=== PATIENT | female | born 1995 | race Caucasian/White ===

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

== ENCOUNTER 2018-08-20 14:31 | Inpatient (IN) | payer OTHER ==
[~2018-08-20] VITALS: Ht 188 cm; Wt 66.7 kg
[2018-08-20 15:10] VITALS: BP 139/87
[2018-08-20] MEDS ORDERED: 0.9 % SODIUM CHLORIDE 10 ML DISP.SYRIN. IV PRN (15:15)
[2018-08-20 15:48] LABS: BILIRUBIN,URINE NEGATIVE (NEG); CLARITY,URINE CLEAR; COLOR,URINE YELLOW; NITRITE,URINE NEGATIVE (NEG); PROTEIN,URINE NEGATIVE (NEG-TRACE); UROBILINOGEN,URINE 0.2 mg/dL (0.2 mg/dL)
[2018-08-20] MEDS: IV RINGERS,LACTATED 1000ML 1,000 ML IV SCH ×2 (16:03→21:20)
[2018-08-20] MEDS: KETOROLAC 15 MG/ML VIAL. IV PRN (16:03)
[2018-08-20 16:04] LABS: BACTERIA,URINE FEW /HPF (0-FEW); RBC,URINE 0 /HPF (0-2); SQUAMOUS EPITHELIAL CELL,UR MANY /LPF; WBC,URINE OCC /HPF (0-4)
[2018-08-20 16:04] LABS: BASO # 0.1 x10^3/uL (0.0-0.2); BASO % 1 % (0-3); EOS % 0 % (0-3); HEMATOCRIT 47.3 % (36.0-47.0); HEMOGLOBIN 16.1 g/dL (12.0-15.5); LYMPH # 1.2 x10^3/uL (1.0-4.8); LYMPH % 17 % (24-48); MEAN CORPUSCULAR HEMOGLOBIN 30 pg (25-35); MEAN CORPUSCULAR HGB CONC 34 g/dL (31-37); MEAN CORPUSCULAR VOLUME 90 fL (79-100); MONO # 0.4 x10^3/uL (0.0-1.1); MONO % 5 % (0-9); NEUT # 5.3 x10^3uL (1.8-7.7); NEUT % 76 % (31-73); PLATELET COUNT 185 x10^3/uL (140-400); RED BLOOD COUNT 5.28 x10^6/uL (3.50-5.40); RED CELL DISTRIBUTION WIDTH 14.1 % (11.5-14.5); WHITE BLOOD COUNT 6.9 x10^3/uL (4.0-11.0)
[2018-08-20] MEDS: ONDANSETRON PF 4 MG/2 ML VIAL. IV PRN (16:04)
[2018-08-20] MEDS ORDERED: NORE-83 PO (16:24)
[2018-08-20 16:25] LABS: ALBUMIN 4.4 g/dL (3.4-5.0); ALBUMIN/GLOBULIN RATIO 1.2 (1.0-1.7); CALCIUM 9.6 mg/dL (8.5-10.1); CREATININE 0.8 mg/dL (0.6-1.0); GFR 90.5; POTASSIUM 4.1 mmol/L (3.5-5.1); TOTAL BILIRUBIN 0.5 mg/dL (0.2-1.0); TOTAL PROTEIN 8.1 g/dL (6.4-8.2)
--- NOTE | 2018-08-20 16:58 | NUR ---
Pt arrived to unit by w/c, accompanied by grandmother, JeffreyA from Dr Roland's office. Admission Dx Abdominal Pain. Dr Roland sent written orders with Pt, this nurse called back to verify Rocephin since Pt has PCN allergies, okay to administer per orders. IVFs initiated, blood drawn by lab, UA collected. Admission assessment in progress. Pt has a history of self-mutilation and suicide attempts but denies wish to harm herself. Lethality assessment completed by EKATERINA Hebert, Nurse [employer] Printer Operator to sign.
[2018-08-20] MEDS ORDERED: cefTRIAXone IV Push 1 GM VIAL. IVP SCH (17:00)
[2018-08-20] MEDS: fentaNYL PF VIAL 100 MCG/2 ML VIAL IV PRN ×2 (18:13→21:31)
[2018-08-20 18:32] LABS: BARBITURATES NEG (NEG); BENZODIAZEPINES NEG (NEG); CANNABINOIDS POS (NEG); COCAINE NEG (NEG); METHADONE NEG (NEG); OPIATES NEG (NEG); PHENCYCLIDINE NEG (NEG)
[2018-08-20 18:33] LABS: AMPHETAMINE/METHAMPHETAMINE NEG (NEG)
[2018-08-20 19:00] VITALS: BP 130/75
[2018-08-20] MEDS: PROCHLORPERAZINE 10 MG/2 ML VIAL. IV PRN (21:16)
[2018-08-20 23:00] VITALS: BP 123/71
[2018-08-21] MEDS: IV RINGERS,LACTATED 1000ML 1,000 ML IV SCH ×4 (02:25→23:14)
[2018-08-21 03:00] VITALS: BP 120/69
[2018-08-21] MEDS: KETOROLAC 15 MG/ML VIAL. IV PRN (04:09)
[2018-08-21] MEDS: ONDANSETRON PF 4 MG/2 ML VIAL. IV PRN (04:10)
[2018-08-21] MEDS: fentaNYL PF VIAL 100 MCG/2 ML VIAL IV PRN ×4 (05:36→23:09)
[2018-08-21] MEDS: PROCHLORPERAZINE 10 MG/2 ML VIAL. IV PRN ×4 (05:37→23:09)
[2018-08-21 07:00] VITALS: BP 134/85
--- NOTE | 2018-08-21 08:59 | PDOC ---
Provider Note Provider Note vss, no temp- labs all ok- tender R cva persists, also RUQ- ua clear so dc rocephin- ct uro re ? stone, add protonix re ? atypical ulcer- states her thc intake is low, so not likely cannabis syndrome RANJAN HERRERA MD Aug 21, 2018 08:59
[2018-08-21 10:28] LABS: U PREG PATIENT NEGATIVE (NEG)
[2018-08-21 10:30] VITALS: BP 128/81
--- NOTE | 2018-08-21 11:04 | HP ---
ADMIT DATE: 08/20/2018 CHIEF COMPLAINT: Flank pain. HISTORY OF PRESENT ILLNESS: A 23-year-old white female seen in the office on the day of admission for 3 days of upper abdominal pain, right flank pain and pain to the right side. She has had nausea and vomiting and decreased urine output as well. She was seen at [facility] and apparently a pelvic ultrasound and CT scan of the abdomen and pelvis were both normal. and she was told it was "irritable bowel syndrome." She was given antispasmodics, but her pain continued and vomiting persisted. She is admitted for further evaluation. PAST MEDICAL HISTORY: Surgically knee surgeries x 2, cholecystectomy. MEDICATIONS: Include control pills only. ALLERGIES: PENICILLIN. SOCIAL HISTORY: She is a nonsmoker. She is not currently sexually active. Last intercourse 6 months ago. She is on control pills. test recently was negative. She is single. FAMILY HISTORY: Unremarkable. REVIEW OF SYSTEMS: No other problems. OBJECTIVE: ENT: All within normal limits except dry mucosa. No jaundice is seen. NECK: No masses, nodes or bruits. LUNGS: Clear. CARDIOVASCULAR: Regular rate, mild tachycardia. No murmur. ABDOMEN: Tender in right upper quadrant and right lower quadrant. Mild guarding. No masses, rebound or skin rash. BACK: She is tender to right flank percussion. Left side is benign. EXTREMITIES: Unremarkable. GENITOURINARY AND RECTAL: Deferred. ASSESSMENT: Right flank and abdominal pain, nausea and vomiting, suspect pyelonephritis, less likely renal stone, which she has apparently had before. PLAN: As ordered. RANJAN HERRERA MD DR: CEE/anthony JOB#: [id number] / [id number]
--- NOTE | 2018-08-21 11:42 | RAD ---
CT Abdomen and Pelvis without contrast History: Right flank pain Technique: Noncontrast CT imaging was performed of the abdomen and pelvis. Multiplanar images are reviewed. Exposure: One or more of the following individualized dose reduction techniques were utilized for this examination: 1. Automated exposure control 2. Adjustment of the mA and/or kV according to patient size 3. Use of iterative reconstruction technique. Comparison: None Findings: There is no abnormality of the limited visualized lung bases. Accurate evaluation of abdominal visceral organs is limited without intravenous contrast. There is no obvious abnormality of the spleen, liver, or pancreas. There is no adrenal nodularity. There has been cholecystectomy. There is mild right caliectasis. Right ureter is not significantly dilated. Tiny 1-2 mm calculus in the right pelvis is believed to be outside of the ureter although difficult to visualize the distal right ureter on this exam. Accurate evaluation of bowel is limited without oral contrast. There is mild scattered colonic diverticulosis. There is no significant free air, free fluid, bowel dilatation. Normal caliber appendix is visualized. Impression: 1. There is a tiny 1 to 2 mm calculus in the right pelvis, believed to be outside the ureter although distal right ureter difficult to visualize in its entirety. There is mild right caliectasis, no renal calculus. There is no ureteral dilatation. 2. There is no CT evidence of acute appendicitis. 3. There is mild scattered colonic diverticulosis. Electronically signed by: Jaspreet Dunn MD (08/21/2018 11:38 AM) [id number]
[2018-08-21 14:34] VITALS: BP 132/83
--- NOTE | 2018-08-21 15:19 | NUR ---
SW following. Discussed with RN, RN denied and SW needs at this time. Pt listed as self pay but reported to [facility], Cheri that she has insurance. SW will continue to follow.
[2018-08-21 18:58] LABS: FECAL OB PT NEGATIVE (NEG)
[2018-08-21 19:00] VITALS: BP 131/79
[2018-08-21 23:00] VITALS: BP 130/87
[2018-08-22 03:00] VITALS: BP 136/84
[2018-08-22] MEDS: ONDANSETRON PF 4 MG/2 ML VIAL. IV PRN ×2 (04:47→12:13)
[2018-08-22 05:14] LABS: ALBUMIN 3.9 g/dL (3.4-5.0); DIRECT BILIRUBIN 0.2 mg/dL (0.0-0.2); TOTAL BILIRUBIN 0.9 mg/dL (0.2-1.0); TOTAL PROTEIN 7.1 g/dL (6.4-8.2)
[2018-08-22] MEDS: PROCHLORPERAZINE 10 MG/2 ML VIAL. IV PRN (06:48)
[2018-08-22] MEDS: fentaNYL PF VIAL 100 MCG/2 ML VIAL IV PRN ×4 (06:48→18:36)
[2018-08-22 07:00] VITALS: BP 125/77
[2018-08-22] MEDS: IV RINGERS,LACTATED 1000ML 1,000 ML IV SCH (07:53)
--- NOTE | 2018-08-22 08:16 | PDOC ---
Provider Note Provider Note pain R cva down from 9 to 5 but still hurts, still quite nauseous-, no melena, emesis, new sxs- labs ,vss ok- ct shows scant R calyectasis, no hydroureter- ? passed R stone- will sono, cont same for now, re slow progress- stool neg for blood RANJAN HERRERA MD Aug 22, 2018 08:16
[2018-08-22] MEDS ORDERED: PANTOPRAZOLE IV PUSH 40 MG VIAL. IVP SCH (08:30)
[2018-08-22] MEDS: TAMSULOSIN 0.4 MG CAP.ER.24H. PO SCH (08:30)
[2018-08-22] MEDS: POTASSIUM CL 20MEQ D5-0.45NACL 1,000 ML IV SCH ×2 (08:31→19:39)
--- NOTE | 2018-08-22 09:23 | RAD ---
Renal sonography Clinical indications: Flank pain. History kidney stones. FINDINGS: The longitudinal AP and transverse dimensions of the right kidney are 11.0 cm and 3.7 cm and 4.0 cm respectively. The longitudinal AP and transverse dimensions of the left kidney are 11.1 cm and 3.5 cm and 5.4 cm respectively. No hydronephrosis or renal mass or perinephric fluid collection is evident on either side. The urinary bladder is mildly distended. No intraluminal echodensities or masses are seen. IMPRESSION: Unremarkable study. Electronically signed by: Clyde Nick MD (08/22/2018 9:20 AM) [facility]
--- NOTE | 2018-08-22 09:32 | PDOC2 ---
GI CONSULT Reason For Consult: right upper abd pain HPI: HPI: 23 y/o female who has been ill since last . Stabbing right-sided pain began while driving to work that day. Constant, felt in flank and RUQ w/ some in epigastrium, worse w/ walking. Leigh Ann felt like gallbladder pain. Associated w/ fever (100 at home, afebrile here), n/v (began on Saturday - bilious , maybe a streak of red blood once, occurs 30 min after eating/drinking), and diarrhea (began on , better now). Occasional heartburn if eats marinara sauce late at night, takes Tums sometimes. No dysphagia. No chronic n/v or pain. Typically no diarrhea or constipation. Denies hematochezia and melena. Maybe weight loss over the past few days since not eating. Denies sick contacts or ingestion of questionable food. Took atbx for pneumonia late last year. No previous EGD or colonoscopy. S/p cholecystectomy. No PUD, liver, or pancreas history. No regular NSAIDs. PMH: PMH: pneumonia, depression, heartburn, diverticulosis bilateral knee arthroscopies, cholecystectomy (biliary dyskinesia), corrective eye surgery FH: Family History: No pertinent hx (deneis GI cancers, PUD, IBD) Social History: Smoke: No ALCOHOL: rare Drugs: Marijuana (twice weekly) ROS: GEN: +fever HEENT: Denies blurred vision, sore throat CV: Denies chest pain RESP: Denies shortness of air, cough GI: Per HPI : Denies hematuria, dysuria ENDO: ?weight loss NEURO: Denies confusion, dizziness MSK: Denies weakness, joint pain/swelling SKIN: Denies jaundice, pruritus Vitals: Vitals: Vital Signs Date Time Temp Pulse Resp B/P (MAP) Pulse Ox O2 Delivery O2 Flow Rate FiO2 08/22/18 07:35 Room Air 08/22/18 07:00 98.0 103 16 125/77 (93) 98 98.0 Labs: Labs: Laboratory Tests Test 08/21/18 18:42 08/22/18 04:15 Stool Occult Blood Negative (NEG) Total Bilirubin 0.9 mg/dL (0.2-1.0) Direct Bilirubin 0.2 mg/dL (0.0-0.2) Aspartate Amino Transf (AST/SGOT) 18 U/L (15-37) Alanine Aminotransferase (ALT/SGPT) 58 U/L (14-59) Alkaline Phosphatase 70 U/L (46-116) Total Protein 7.1 g/dL (6.4-8.2) Albumin 3.9 g/dL (3.4-5.0) BLOOD CULTURE Preliminary NO GROWTH AFTER 1 DAY Allergies: Coded Allergies: Latex, Natural Rubber (Verified Allergy, Severe, 08/20/18) Penicillins (Verified Allergy, Severe, 08/20/18) morphine (Verified Allergy, Intermediate, 08/20/18) Medications: Current Medications Medications (Trade) Dose Ordered Sig/Shashank Route PRN Reason Start Time Stop Time Status Last Admin Dose Admin Pantoprazole Sodium (PROTONIX VIAL for IV PUSH) 40 mg DAILYAC IVP 08/22/18 08:30 08/22/18 08:30 Potassium Chloride/Dextrose/ Sod Cl 1,000 ml @ 75 mls/hr [id number] IV 08/22/18 08:30 08/22/18 08:31 Tamsulosin HCl (Flomax) 0.4 mg DAILY PO 08/22/18 09:00 08/22/18 08:30 Imaging: Imaging: CT A/P 08/21 Impression: 1. There is a tiny 1 to 2 mm calculus in the right pelvis, believed to be outside the ureter although distal right ureter difficult to visualize in its entirety. There is mild right caliectasis, no renal calculus. There is no ureteral dilatation. 2. There is no CT evidence of acute appendicitis. 3. There is mild scattered colonic diverticulosis. Right renal US 08/22 IMPRESSION: Unremarkable study. PE: GEN: uncomfortable - having ultrasound HEENT: Atraumatic, PERRL LUNGS: CTAB HEART: RRR ABD: NABS, S/ND, mid right abd discomfort at level of umbilicus, some discomfort in epigastrium, worse around to right flank EXTREMITY: No edema SKIN: No rashes, no jaundice NEURO/PSYCH: A & O 3 A/P: A/P: Right flank/abd pain ?fever, n/v, diarrhea (better) Abnormal CT - tiny 1-2 mm calculus in right pelvis Occasional heartburn - no previous EGD, takes Tums PRN CRC screen - average risk Diverticulosis S/p cholecystectomy +marijuana -- Ongoing pain. Diarrhea improved, ?ongoing n/v - has been NPO Agree w/ PPI - will make BID and can change to PO when tolerating diet. Cortisol pending. DAVIS GODFREY Aug 22, 2018 09:32
[2018-08-22 11:00] VITALS: BP 132/86
--- NOTE | 2018-08-22 13:24 | PDOC2 ---
TAISHA TATE [employer]GER [employer] 08/22/18 1324: CONSULT Date of Consult Date of Consult DATE: 08/22/18 TIME: 13:17 Reason for Consult Reason for Consult: rlq pain Referring Physician Referring Physician: Dr Jacobo Identification/Chief Complaint Chief Complaint abdominal pain Source Source: Chart review, Patient History of Present Illness Reason for Visit: RLQ pain that started last (8 days ago). She did have some diarrhea, however that has now improved and stools are becoming more solid. She was seen at [facility] on Saturday, CT without appendicitis per pt and PCP note. Treated for IBS. Continues to have RLQ pain with radiation to her back. Pain is worse with movement. She does have associated nausea and emesis. Past Medical History GI: Diverticulosis, GERD Past Surgical History Past Surgical History: Cholecystectomy Family History Family History: Other (noncontributory to current illness ) Social History No ALCOHOL: rare Drugs: Marijuana (twice weekly) Current Medications Current Medications Current Medications Sodium Chloride (Normal Saline Flush) 3 ml PRN DAILY PRN IV AFTER MEDS AND BLOOD DRAWS; Start 08/20/18 at 15:15 Ringer's Solution 1,000 ml @ 75 mls/hr [id number] IV Last administered on at 23:14; Start 08/20/18 at 15:06; Stop 08/22/18 at 08:14; Status DC Ondansetron HCl (Zofran) 4 mg PRN Q6HRS PRN IV NAUSEA/VOMITING Last administered on 08/22/18at 12:13; Start 08/20/18 at 15:15 Ketorolac Tromethamine (Toradol 15mg Vial) 15 mg PRN Q6HRS PRN IV PAIN Last administered on 08/21/18at 04:09; Start 08/20/18 at 15:15; Stop 08/25/18 at 15:14 Ceftriaxone Sodium (Rocephin) 1 gm Q24H IVP Last administered on 08/20/18at 17: 09; Start 08/20/18 at 17:00; Stop 08/21/18 at 08:41; Status DC Fentanyl Citrate (Fentanyl 2ml Vial) 75 mcg PRN Q3HRS PRN IV PAIN Last administered on 08/22/18at 06:48; Start 08/20/18 at 18:00; Stop 08/22/18 at 08:14; Status DC Prochlorperazine Edisylate (Compazine) 5 mg PRN Q6HRS PRN IV NAUSEA/VOMITING Last administered on 08/22/18at 06:48; Start 08/20/18 at 20:45 Pantoprazole Sodium (PROTONIX VIAL for IV PUSH) 40 mg DAILYAC IVP Last administered on 08/22/18at 08:30; Start 08/22/18 at 08:30; Stop 08/22/18 at 10:10; Status DC Fentanyl Citrate (Fentanyl 2ml Vial) 50 mcg PRN Q3HRS PRN IV PAIN Last administered on 08/22/18at 12:12; Start 08/22/18 at 08:15 Potassium Chloride/Dextrose/ Sod Cl 1,000 ml @ 75 mls/hr [id number] IV Last administered on 08/22/18at 08:31; Start 08/22/18 at 08:30 Tamsulosin HCl (Flomax) 0.4 mg DAILY PO Last administered on 08/22/18at 08:30; Start 08/22/18 at 09:00 Pantoprazole Sodium (PROTONIX VIAL for IV PUSH) 40 mg BIDAC IVP ; Start 08/22/18 at 16:30 Ciprofloxacin/ Dextrose 100 ml @ 100 mls/hr Q12HR IV ; Start 08/22/18 at 13:00 Metronidazole 100 ml @ 100 mls/hr Q12HR IV ; Start 08/22/18 at 13:00 Active Scripts Active Reported Loestrin (Norethindrone A-E Estradiol) 1 Each Tablet 1 Tab PO DAILY Allergies Allergies: Coded Allergies: Latex, Natural Rubber (Verified Allergy, Severe, 08/20/18) Penicillins (Verified Allergy, Severe, 08/20/18) morphine (Verified Allergy, Intermediate, 08/20/18) ROS General: YES: Chills, Other (low grade fevers at home) PSYCHOLOGICAL ROS: No: Anxiety, Depression Eyes: No Blurry vision, No Double vision HEENT: No: Heacaches, Sore Throat Hematological and Lymphatic: No: Bleeding Problems, Blood Clots Respiratory: No: Cough, Shortness of breath Cardiovascular: No Chest Pain, No Palpitations Gastrointestinal: Yes Other (see hpi) Genitourinary: No Dysuria, No Hematuria Musculoskeletal: No Gait Disturbance, No Muscle Pain Neurological: No Confusion, No Impaired Coord/balance Skin: No Pruritus, No Rash Physical Exam General: Alert, Oriented X3, Cooperative, No acute distress HEENT: PERRLA, Mucous membr. moist/pink Lungs: Clear to auscultation, Normal air movement Heart: Regular rate, Normal S1, Normal S2, No murmurs Abdomen: Soft, Other (ND, mild TTP to RLQ, no guarding or rebound) Extremities: No clubbing, No cyanosis Skin: No rashes, No breakdown Neuro: Normal gait, Normal speech Psych/Mental Status: Mental status NL, Mood NL MUSCULOSKELETAL: No deformity, No swelling Vitals VITALS Vital Signs Date Time Temp Pulse Resp B/P (MAP) Pulse Ox O2 Delivery O2 Flow Rate FiO2 08/22/18 12:12 Room Air 08/22/18 11:00 98.5 104 18 132/86 (101) 98 98.5 Labs Labs Laboratory Tests Test 08/20/18 15:25 08/20/18 15:45 08/21/18 07:44 08/21/18 18:42 Urine Collection Type Unknown Urine Color Yellow Urine Clarity Clear Urine pH 8.0 Urine Specific [place] 1.015 Urine Protein Negative mg/dL (NEG-TRACE) Urine Glucose (UA) Negative mg/dL (NEG) Urine Ketones (Stick) 15 mg/dL (NEG) Urine Blood Negative (NEG) Urine Nitrite Negative (NEG) Urine Bilirubin Negative (NEG) Urine Urobilinogen Dipstick 0.2 mg/dL (0.2 mg/dL) Urine Leukocyte Esterase Negative (NEG) Urine RBC 0 /HPF (0-2) Urine WBC Occ /HPF (0-4) Urine Squamous Epithelial Cells Many /LPF Urine Bacteria Few /HPF (0-FEW) Urine Opiates Screen Neg (NEG) Urine Methadone Screen Neg (NEG) Urine Barbiturates Neg (NEG) Urine Phencyclidine Screen Neg (NEG) Urine Amphetamine/Methamphetamine Neg (NEG) Urine Benzodiazepines Screen Neg (NEG) Urine Cocaine Screen Neg (NEG) Urine Cannabinoids Screen Pos (NEG) Urine Ethyl Alcohol Neg (NEG) White Blood Count 6.9 x10^3/uL (4.0-11.0) Red Blood Count 5.28 x10^6/uL (3.50-5.40) Hemoglobin 16.1 g/dL (12.0-15.5) Hematocrit 47.3 % (36.0-47.0) Mean Corpuscular Volume 90 fL (79-100) Mean Corpuscular Hemoglobin 30 pg (25-35) Mean Corpuscular Hemoglobin Concent 34 g/dL (31-37) Red Cell Distribution Width 14.1 % (11.5-14.5) Platelet Count 185 x10^3/uL (140-400) Neutrophils (%) (Auto) 76 % (31-73) Lymphocytes (%) (Auto) 17 % (24-48) Monocytes (%) (Auto) 5 % (0-9) Eosinophils (%) (Auto) 0 % (0-3) Basophils (%) (Auto) 1 % (0-3) Neutrophils # (Auto) 5.3 x10^3uL (1.8-7.7) Lymphocytes # (Auto) 1.2 x10^3/uL (1.0-4.8) Monocytes # (Auto) 0.4 x10^3/uL (0.0-1.1) Eosinophils # (Auto) 0.0 x10^3/uL (0.0-0.7) Basophils # (Auto) 0.1 x10^3/uL (0.0-0.2) Sodium Level 142 mmol/L (136-145) Potassium Level 4.1 mmol/L (3.5-5.1) Chloride Level 104 mmol/L (98-107) Carbon Dioxide Level 26 mmol/L (21-32) Anion Gap 12 (6-14) Blood Urea Nitrogen 8 mg/dL (7-20) Creatinine 0.8 mg/dL (0.6-1.0) Estimated GFR (Cockcroft-Gault) 90.5 BUN/Creatinine Ratio 10 (6-20) Glucose Level 91 mg/dL (70-99) Calcium Level 9.6 mg/dL (8.5-10.1) Total Bilirubin 0.5 mg/dL (0.2-1.0) Aspartate Amino Transf (AST/SGOT) 21 U/L (15-37) Alanine Aminotransferase (ALT/SGPT) 83 U/L (14-59) Alkaline Phosphatase 82 U/L (46-116) Total Protein 8.1 g/dL (6.4-8.2) Albumin 4.4 g/dL (3.4-5.0) Albumin/Globulin Ratio 1.2 (1.0-1.7) Lipase 66 U/L (73-393) Urine Test Negative (NEG) Stool Occult Blood Negative (NEG) Test 08/22/18 04:15 Total Bilirubin 0.9 mg/dL (0.2-1.0) Direct Bilirubin 0.2 mg/dL (0.0-0.2) Aspartate Amino Transf (AST/SGOT) 18 U/L (15-37) Alanine Aminotransferase (ALT/SGPT) 58 U/L (14-59) Alkaline Phosphatase 70 U/L (46-116) Total Protein 7.1 g/dL (6.4-8.2) Albumin 3.9 g/dL (3.4-5.0) Cortisol AM Sample 18.7 ug/dL (4.3-22.4) Laboratory Tests Test 08/21/18 18:42 08/22/18 04:15 Stool Occult Blood Negative (NEG) Total Bilirubin 0.9 mg/dL (0.2-1.0) Direct Bilirubin 0.2 mg/dL (0.0-0.2) Aspartate Amino Transf (AST/SGOT) 18 U/L (15-37) Alanine Aminotransferase (ALT/SGPT) 58 U/L (14-59) Alkaline Phosphatase 70 U/L (46-116) Total Protein 7.1 g/dL (6.4-8.2) Albumin 3.9 g/dL (3.4-5.0) Cortisol AM Sample 18.7 ug/dL (4.3-22.4) Assessment/Plan Assessment/Plan abdominal pain x 8 days, diarrhea(improving) normal CT here and at [facility] on Saturday WBC normal not suggestive of appendicitis--reviewed with Dr Gomes no surgical plans defer to PCP--could consider pelvic sono and public policy professor consult SHARI GOMES MD 08/22/18 1435: CONSULT Assessment/Plan Assessment/Plan Reviewed; Abdominal pain over a week, 2 CT scans negative for appendicitis, normal WBC; appendicitis very unlikely; recommend Eap Specialist evaluation TAISHA TATE APRN Aug 22, 2018 13:24 SHARI GOMES MD Aug 22, 2018 14:35
--- NOTE | 2018-08-22 13:50 | NUR ---
Dr. Luan hussein re: Saadia MUELLER's assessment and pt's pain meds.
[2018-08-22] MEDS: KETOROLAC 15 MG/ML VIAL. IV PRN (13:53)
--- NOTE | 2018-08-22 14:06 | NUR ---
Dr. Roland returned call, notified of ERVIN Zee's assessment, orders received.
[2018-08-22 15:00] VITALS: BP 133/84
[2018-08-22] MEDS: CIPROFLOXACIN 200MG PREMIX 100 ML IV SCH ×2 (15:41→20:32)
--- NOTE | 2018-08-22 15:46 | NUR ---
SW following. Discussed with RN, SW met with pt to discuss insurance status. Pt reported she has insurance. Cheri ([facility]) gave insurance information to admissions. Pt denied any SW needs at this time. RN notified. SW will continue to follow.
[2018-08-22] MEDS: PANTOPRAZOLE IV PUSH 40 MG VIAL. IVP SCH (17:34)
--- NOTE | 2018-08-22 18:40 | NUR ---
Dr. Nicholas paged re:pt's mother's request for her to eat.
--- NOTE | 2018-08-22 18:54 | NUR ---
Dr. Whatley returned call, orders received.
[2018-08-22 19:00] VITALS: BP 129/75
--- NOTE | 2018-08-22 19:44 | CONS ---
DATE OF CONSULTATION: This patient is a 23-year-old white female who is being admitted to the hospital by Dr. Roland for lower abdominal pain and she is a 0, para 0. The patient seen in consultation for lower abdominal pain and she has had a gallbladder surgery before and she does have a history of marijuana smoking some time off and on. She has been doing it and this pain started about a week ago and General Surgeon has seen her already, ruled out appendicitis. Urine shows a few bacteria and she does complain of having abdominal pain little above the pelvic area radiating to the back. Abdomen feels soft. Pelvic exam shows external genitalia being normal. Cervical os is closed. On bimanual exam, uterus feels normal size. No adnexal masses are palpable. No vaginal bleeding noted. Basically a negative pelvic exam. She has had a normal Pap smear before. DIAGNOSIS: Lower abdominal pain, possible urinary tract infection, also rule out gastroenteritis. RECOMMENDATION: Continue IV fluids, also IV antibiotics and mostly conservative treatment at this time. Thank you for giving me the opportunity to participate in the care and management of this patient. ABDULKADIR SEE MD DR: DARREN/anthony JOB#: [id number] / [id number]
[2018-08-22 23:00] VITALS: BP 132/75
[2018-08-23 03:00] VITALS: BP 128/76
[2018-08-23] MEDS: KETOROLAC 15 MG/ML VIAL. IV PRN (03:44)
[2018-08-23] MEDS: POTASSIUM CL 20MEQ D5-0.45NACL 1,000 ML IV SCH ×2 (03:48→11:33)
[2018-08-23 07:00] VITALS: BP 122/82
[2018-08-23] MEDS: PANTOPRAZOLE IV PUSH 40 MG VIAL. IVP SCH (07:00)
[2018-08-23] MEDS: TAMSULOSIN 0.4 MG CAP.ER.24H. PO SCH (09:00)
[2018-08-23] MEDS ORDERED: PANT20TA2 PO (09:23)
[2018-08-23] MEDS ORDERED: CELE200C PO (09:23)
--- NOTE | 2018-08-23 09:34 | PDOC ---
SURGICAL PROGRESS NOTE Subjective pain has improved, she feels more crampy pain now no n/v tolerating clears Vital Signs Vital Signs Date Time Temp Pulse Resp B/P (MAP) Pulse Ox O2 Delivery O2 Flow Rate FiO2 08/23/18 07:00 97.7 118 18 122/82 (95) 99 Room Air 97.7 I&O Intake and Output 08/23/18 06:59 Intake Total 210 ml Balance 210 ml Intake Oral 210 ml # Voids 2 General: Alert, Oriented X3, Cooperative, No acute distress Abdomen: Soft, Other (mild ttp RLQ, no guarding or rebound) Labs Laboratory Tests Test 08/21/18 18:42 08/22/18 04:15 Stool Occult Blood Negative (NEG) Total Bilirubin 0.9 mg/dL (0.2-1.0) Direct Bilirubin 0.2 mg/dL (0.0-0.2) Aspartate Amino Transf (AST/SGOT) 18 U/L (15-37) Alanine Aminotransferase (ALT/SGPT) 58 U/L (14-59) Alkaline Phosphatase 70 U/L (46-116) Total Protein 7.1 g/dL (6.4-8.2) Albumin 3.9 g/dL (3.4-5.0) Cortisol AM Sample 18.7 ug/dL (4.3-22.4) Problem List no surgical issues will sign off available as needed TAISHA TATE APRN Aug 23, 2018 09:34
--- NOTE | 2018-08-23 10:31 | PDOC ---
Subjective: Subjective: Patient was seen and examined at bed side. Discussed with the mother who was at bed side. patient reports the pain has improved this morning. Patient denies being sexual active in the last few months. She reports she has not missed her period. Mother reports that patient had imaging at [facility] including pelvic ultrasound that ruled out pelvic process including torsion of ovarian cyst and ectopic . Objective: Vital Signs: Vital Signs Date Time Temp Pulse Resp B/P (MAP) Pulse Ox O2 Delivery O2 Flow Rate FiO2 08/23/18 07:00 97.7 118 18 122/82 (95) 99 Room Air 97.7 PE: GEN: NAD HEENT: Atraumatic, PERRLA LUNGS: CTAB HEART: RRR, no murmurs ABD: NABS, S/ND/NT, no masses EXTREMITY: No edema SKIN: No rashes, no jaundice NEURO/PSYCH: A & O 3 A/P: A 23 years old female patient that was admitted with right mid abdominal pain radiating to the flan area. Exam notable for mild CVAT. Imaging with CT showed small calculus in the right pelvis. Reportedly, patient had transvaginal ultrasound at [facility] that ruled out pelvic process including torsion of ovarian cyst and ectopic . Ultrasound of kidneys with no acute process. Imaging with CT ruled out appendicitis, enteritis or colitis. Plan - Advance diet as tolerated. - Pain management as per primary team. - PPI BID. - Please obtain the records including imaging reports from [facility]. Thank you for involving us in the care of this interesting patient. JAROD JIMENEZ MD Aug 23, 2018 10:31
[2018-08-23 11:00] VITALS: BP 136/86
--- NOTE | 2018-08-23 11:32 | DS ---
DATE OF DISCHARGE: 08/23/2018 PRIMARY DIAGNOSIS: Abdominal pain. ADDITIONAL DIAGNOSIS: Possible renal colic as etiology, but uncertain for sure etiology. CHIEF COMPLAINT AND HISTORY OF PRESENT ILLNESS: This is a 23-year-old white female admitted through the Emergency Room with severe abdominal pain, mainly in the flank and right upper quadrant. SUMMARY OF STAY: The patient was admitted, treated with IV hydration, IV fluids. Tamsulosin, Protonix and Toradol were added to the regimen as well as fentanyl for severe pain. She had gynecological evaluation, was felt to be negative; GI that felt to be negative; Surgery who felt there was no surgery necessary. CT scanning showed a possibility of a right tiny 1-2 mm calculus in the right pelvis, believed to be outside the ureter, although the distal right ureter was difficult to visualize. There was no evidence of appendicitis and there was mild scattered colonic diverticulosis noted. Ultrasound showed no acute abnormalities. She was improved on the day of admission, was able to eat broth and had an appetite that was returning and felt she could be home at this point in time as the Toradol was seeming to control the pain. It seemed rationale to me to send her probably on some Celebrex and continue the Protonix, which had been started with close outpatient followup and this was accomplished. DISPOSITION: The patient is discharged to home. DIET: As tolerated. ACTIVITY: As tolerated, office with Dr. Roland next week. DISCHARGE MEDICATIONS: Listed on the med rec and have been addressed. JILLIAN LOVE MD DR: MAKSIM/anthony JOB#: [id number] / [id number]
--- NOTE | 2018-08-23 14:22 | NUR ---
Pt was given rx and dc packet. VSS. No pain. No questions asked. Pt is to f/u with Dr in one week. Pt was escorted to main entrance by [facility] at 1345.
== END 2018-08-23 13:44 | disposition home or self-care (01) | DRG 694 ==
LOC: MERGE 14:50 → 4 NORTH 14:50
PROVIDERS: ADMIT Family Medicine; ATTEND Family Medicine
DX: N20.0 Calculus of kidney (principal); Z68.1 Body mass index [BMI] 19.9 or less, adult; F32.9 Major depressive disorder, single episode, unspecified; K57.30 Diverticulosis of large intestine without perforation or abscess without bleeding; K21.9 Gastro-esophageal reflux disease without esophagitis; R63.4 Abnormal weight loss; Z90.49 Acquired absence of other specified parts of digestive tract; Z88.0 Allergy status to penicillin; Z88.6 Allergy status to analgesic agent; Z91.040 Latex allergy status
CPT/HCPCS: 36415; 74176; 76775; 80053; 80076; 80307; 81001; 81025; 82274; 82533; 83690; 85025; 87040; C9113; J0696; J0744; J0780; J1885; J2405; J3010; J3490; J7120